=== PATIENT | female | born 1985 | race Caucasian/White ===

== ENCOUNTER 2018-12-21 14:23 | Emergency (ER) | payer OTHER ==
[~2018-12-21] VITALS: Ht 162.6 cm; Wt 47.7 kg
[~2018-12-21 14:23] MED LIST: KLON1TAB PO; NORCOTAB PO
[2018-12-21] MEDS ORDERED: MIRE1IUD IU (14:28)
[2018-12-21] MEDS ORDERED: KETOROLAC 60 MG/2 ML VIAL (J1885) IM ONE (16:00)
[2018-12-21 16:09] VITALS: BP 116/60
== END 2018-12-21 16:10 | disposition home or self-care (01) ==
LOC: M ED 14:23
DX: N83.292 Other ovarian cyst, left side (principal); Z97.5 Presence of (intrauterine) contraceptive device; F50.00 Anorexia nervosa, unspecified; Z88.8 Allergy status to other drugs, medicaments and biological substances
CPT/HCPCS: 81001; 96372; 99283; J1885

== ENCOUNTER 2019-01-10 06:52 | Day surgery (SDC) | payer OTHER ==
[~2019-01-10] VITALS: Ht 162.6 cm; Wt 53.3 kg
[~2019-01-10 06:52] MED LIST changes: +HYDR-3715 PO; +LR 1,000 ML IV ONE; +MIRE1IUD IU; -NORCOTAB PO
[2019-01-10 07:18] LABS: HEMATOCRIT 36.5 % (36.0-47.0); HEMOGLOBIN 12.3 g/dl (12.0-15.5); MEAN CORPUSCULAR HEMOGLOBIN 31.2 pg (27.0-33.0); MEAN CORPUSCULAR HGB CONC 33.7 g/dl (32.0-36.5); MEAN CORPUSCULAR VOLUME 92.6 fl (80.0-96.0); PLATELET COUNT, AUTOMATED 334 10^3/uL (150-450); RED BLOOD COUNT 3.94 10^6/uL (4.00-5.40); WHITE BLOOD COUNT 8.4 10^3/uL (4.0-10.0)
[2019-01-10 08:03] LABS: URINE PREG TEST NEGATIVE (NEGATIVE)
[2019-01-10] MEDS ORDERED: fentaNYL 250 MCG/5 ML INJECTION (J3010) As Ordered ONE (08:08)
[2019-01-10] MEDS ORDERED: ROCURONIUM BROMIDE 50 MG/5 ML VIAL As Ordered ONE (08:09)
[2019-01-10] MEDS ORDERED: MIDAZOLAM INJ 2 MG/2 ML VIAL (J2250) As Ordered ONE (08:09)
[2019-01-10] MEDS ORDERED: dexameTHASONE 4 MG/ML 1ML VIAL (J1100) As Ordered ONE (08:09)
[2019-01-10] MEDS ORDERED: PROPOFOL 200 MG/20 ML VIAL As Ordered ONE (08:09)
[2019-01-10] MEDS ORDERED: ONDANSETRON 4MG/2ML VIAL (J2405) As Ordered ONE (08:09)
[2019-01-10] MEDS ORDERED: LIDOCAINE 2% INJ 100 MG/5 ML SDV (FOR ANES.) As Ordered ONE (08:09)
[2019-01-10] MEDS ORDERED: SUGAMMADEX SODIUM 500 MG/5 ML VIAL (BRIDION) As Ordered ONE (08:54)
[2019-01-10] MEDS ORDERED: PERCOCET 5MG/325MG TAB As Ordered ONE (09:23)
[2019-01-10] MEDS ORDERED: KETOROLAC 30 MG/ML VIAL (J1885) As Ordered ONE (09:23)
--- NOTE | 2019-01-10 09:27 | RO ---
DATE OF PROCEDURE: 01/10/2019 PREOPERATIVE DIAGNOSIS: Imbedded intrauterine device. POSTOPERATIVE DIAGNOSIS: Imbedded intrauterine device. PROCEDURE: Operative hysteroscopy with intrauterine device removal. SURGEON: Mariaelena Minor MD RESAW OPERATOR: None. ANESTHESIA: General. ESTIMATED BLOOD LOSS: 5 mL. INTRAVENOUS FLUID: 600 mL. URINE OUTPUT: Not obtained. INFECTION CLASSIFICATION: 1. PREOP ANTIBIOTICS: None. OPERATIVE FINDINGS: Patient with intrauterine device partially imbedded one of the arms. Otherwise normal appearing intrauterine cavity. Bilateral ostia was visualized. DESCRIPTION OF OPERATION: After informed consent was obtained and written consent was reviewed, the patient was brought to the operating room where she was placed under general anesthesia. She was then placed in lithotomy position and was prepped and draped in normal sterile fashion. Time out in the operating room was then performed identifying the patient, procedure to be performed as well as drug allergies. Elizabeth speculum was placed revealing the cervix. The anterior lip of the cervix was grasped with a single tooth tenaculum. The cervix was slightly dilated. The hysteroscope was then advanced through the cervical os at which time visualized intrauterine device, followed it up to the left ostium where there was partial embedment of one of the intrauterine devices arms. Cystoscopic graft was then inserted through the hysteroscope. The intrauterine device was then grasped and this was removed without difficulty. Hysteroscope was then advanced back to the cervical os and the endometrial cavity was inspected and noted to be hemostatic. There was no evidence of perforation. It showed a normal endometrial cavity. Hysteroscope was then removed. Single tooth tenaculum was removed. Tenaculum site was noted to be hemostatic. The patient was then taken out of lithotomy position and was awakened from general anesthesia and taken to recovery in stable condition. Counts were correct.
[2019-01-10] MEDS ORDERED: ONDANSETRON 4MG/2ML VIAL (J2405) IV PRN (09:30)
[2019-01-10] MEDS ORDERED: PERCOCET 5MG/325MG TAB PO PRN ×2 (09:30)
[2019-01-10] MEDS ORDERED: fentaNYL 100 MCG/2 ML INJECTION (J3010) IV PRN (09:30)
[2019-01-10] MEDS ORDERED: KETOROLAC 30 MG/ML VIAL (J1885) IV PRN (09:30)
[2019-01-10] MEDS ORDERED: LR 1,000 ML IV SCH (09:30)
[2019-01-10 09:50] VITALS: BP 114/60
[2019-01-10] MEDS ORDERED: KETOROLAC 30 MG/ML VIAL (J1885) IV SCH (16:00)
== END 2019-01-10 10:30 | disposition home or self-care (01) ==
LOC: M SDC 06:52
PROVIDERS: ATTEND Obstetrics & Gynecology
DX: T83.39XA Other mechanical complication of intrauterine contraceptive device, initial encounter (principal); K21.9 Gastro-esophageal reflux disease without esophagitis; F41.9 Anxiety disorder, unspecified; F32.9 Major depressive disorder, single episode, unspecified; Z88.8 Allergy status to other drugs, medicaments and biological substances; Y76.8 Miscellaneous obstetric and gynecological devices associated with adverse incidents, not elsewhere classified
CPT/HCPCS: 36415; 58562; 84703; 85027; 86850; 86900; 86901; J1100; J1885; J2250; J2405; J3010

== ENCOUNTER 2019-07-25 04:20 | Emergency (ER) | payer OTHER ==
[~2019-07-25] VITALS: Ht 162.6 cm; Wt 54.5 kg
[~2019-07-25 04:20] MED LIST changes: -LR 1,000 ML IV ONE
[2019-07-25] MEDS ORDERED: PAXI40TA10 PO (04:36)
[2019-07-25] MEDS ORDERED: BUSP1TAB PO (04:36)
[2019-07-25 08:10] LABS: HEMATOCRIT 36.3 % (36.0-47.0); HEMOGLOBIN 12.5 g/dl (12.0-15.5); MEAN CORPUSCULAR HGB CONC 34.4 g/dl (32.0-36.5); MEAN CORPUSCULAR VOLUME 90.1 fl (80.0-96.0); PLATELET COUNT, AUTOMATED 304 10^3/uL (150-450); RED BLOOD COUNT 4.03 10^6/uL (4.00-5.40); WHITE BLOOD COUNT 11.2 10^3/uL (4.0-10.0)
[2019-07-25 08:20] VITALS: BP 129/74
[2019-07-25 08:30] LABS: AMPHETAMINES LEVEL URINE NEGATIVE (NEGATIVE); BARBITURATES URINE NEGATIVE (NEGATIVE); BENZODIAZEPINES URINE NEGATIVE (NEGATIVE); CANNABINOIDS URINE POSITIVE (NEGATIVE); COCAINE METABOLITE URINE POSITIVE (NEGATIVE); METHADONE URINE NEGATIVE (NEGATIVE); OPIATES URINE NEGATIVE (NEGATIVE); PHENCYCLIDINE URINE NEGATIVE (NEGATIVE)
[2019-07-25] MEDS ORDERED: clonazePAM 1 MG TAB PO ONE (08:30)
[2019-07-25 08:41] LABS: ACETAMINOPHEN LEVEL < 2.0 UG/ML (10.0-30.0); ALBUMIN 4.1 GM/DL (3.2-5.2); ALT/SGPT 14 U/L (12-78); BILIRUBIN,DIRECT 0.2 MG/DL (0.0-0.2); BILIRUBIN,TOTAL 0.7 MG/DL (0.2-1.0); BLOOD UREA NITROGEN 8 MG/DL (7-18); CALCIUM LEVEL 8.9 MG/DL (8.5-10.1); CARBON DIOXIDE LEVEL 25 MEQ/L (21-32); CHLORIDE LEVEL 108 MEQ/L (98-107); CREATININE FOR GFR 0.82 MG/DL (0.55-1.30); ETHYL ALCOHOL (ETHANOL) < 0.003 % (0.000-0.010); GLOMERULAR FILTRATION RATE > 60.0 (>60); GLUCOSE, FASTING 108 MG/DL (70-100); POTASSIUM SERUM 3.5 MEQ/L (3.5-5.1); SALICYLATE LEVEL < 1.7 MG/DL (5.0-30.0); SODIUM LEVEL 140 MEQ/L (136-145); THYROID STIMULATING HORMONE 0.932 uIU/ML (0.358-3.740); TOTAL PROTEIN 7.5 GM/DL (6.4-8.2)
[2019-07-25 09:42] LABS: CK-MB VALUE MASS < 1.0 NG/ML (<3.6); CPK CREATINE PHOSPHOKINASE 138 U/L (26-192); MB/CK RELATIVE INDEX 0.72 (< OR =4); TROPONIN I < 0.02 NG/ML (< 0.10)
--- NOTE | 2019-07-25 10:28 | ECGEPIP ---
[facility] - ED Test Date: 2019-07-25 Pat Name: ELDON MERIDA Department: Room: - Gender: Female [employer]: : 1985 Requested By: ISABEL Goins Order Number: [id number] Reading MD: Angely Fleming Measurements Intervals [place] Rate: 113 P: 61 IN: 100 QRS: 67 QRSD: 110 T: 9 QT: 309 QTc: 424 Interpretive Statements SINUS TACHYCARDIA WITH SHORT IN INTERVAL INCOMPLETE RIGHT BUNDLE BRANCH BLOCK NONSPECIFIC ST & T-WAVE ABNORMALITY ABNORMAL RHYTHM ECG NO PRIOR Electronically Signed on 07-25-2019 10:28:07 EDT by Angely Fleming
== END 2019-07-25 10:00 | disposition home or self-care (01) ==
LOC: M ED 04:20
DX: F41.0 Panic disorder [episodic paroxysmal anxiety] (principal); F12.20 Cannabis dependence, uncomplicated; F14.20 Cocaine dependence, uncomplicated; F33.9 Major depressive disorder, recurrent, unspecified; Z79.899 Other long term (current) drug therapy; Z88.8 Allergy status to other drugs, medicaments and biological substances
CPT/HCPCS: 36415; 80048; 80076; 80307; 82550; 82553; 84443; 84484; 84702; 85027; 93005; 99284; G0480